=== PATIENT | male | born 1990 | race Caucasian/White ===

== ENCOUNTER 2019-10-05 15:07 | Emergency (ER) | payer MEDICAID, SELFPAY ==
[2019-10-05 15:09] VITALS: BP 153/89; PULSE 105; RESP 16; TEMP 36.8; O2SAT 96; BMI 44.1
--- NOTE | 2019-10-05 15:18 | EKG12_ITS ---
Test Reason : TRAUMA Blood Pressure : / mmHG Vent. Rate : 104 BPM Atrial Rate : 104 BPM P-R Int : 148 ms QRS Dur : 088 ms QT Int : 332 ms P-R-T Axes : 004 042 009 degrees QTc Int : 436 ms Sinus tachycardia Otherwise normal ECG Confirmed by CARRIE DIAZ ([id number]), desk editor DEJON BRENNER ([id number]) on 10/08/2019 2:34:55 PM Referred By: ESTELLA/ Confirmed By:CARRIE DIAZ
--- NOTE | 2019-10-05 15:29 | CT_ITS ---
STUDY: CT ABDOMEN AND PELVIS WITH CONTRAST REASON FOR EXAM: Male, 28 years old. Trauma RADIATION DOSAGE (If Supplied By Facility): CTDIvol = ( 24.53 ) mGy, DLP = ( 2356.62 ) mGycm TECHNIQUE: Transaxial images were obtained from the dome of the diaphragm to the symphysis pubis without oral contrast. 100 ml of Isovue-370 contrast was administered. Sagittal and coronal images were reconstructed. Individualized dose optimization techniques were used for this CT. COMPARISON: None. FINDINGS: Please see the report for the CT of the chest which is dictated separately. There are no calcified gallstones present. The liver is low in density, consistent with fatty infiltration. The spleen is normal in size. The pancreas is within normal limits. The adrenal glands are within normal limits. There are no renal or ureteral stones. There is no hydronephrosis. There are cysts noted in the kidneys. Normal visualized stomach. There is no bowel obstruction or inflammation. The appendix is visualized and appears normal. The aorta is normal in caliber. There is no abdominal or pelvic free air, free fluid, fluid collection or lymphadenopathy. The visualized abdominal and pelvic osseous structures are intact. CT/Abdomen/Pelvis W IV Cont ONLY IMPRESSION: No acute abdominal or pelvic pathology. Fatty liver. Electronically Signed: Hua Villavicencio, at 17:10 EDT Tel , Service support ,
--- NOTE | 2019-10-05 15:29 | CT_ITS ---
STUDY: CT CHEST WITH CONTRAST REASON FOR EXAM: Male, 28 years old. RADIATION DOSAGE (If Supplied By Facility): CTDIvol = ( 24.53 ) mGy, DLP = ( 2356.62 ) mGycm TECHNIQUE: Transaxial imaging was performed following intravenous administration of ml of 100mL Isovue-370 contrast material. Coronal and sagittal reformatted images were created. Individualized dose optimization techniques were used for this CT. COMPARISON: None FINDINGS: There are no pulmonary infiltrates or pleural effusions. There is a calcified granuloma in the left lung base. There is no pneumothorax. The heart and pericardium are within normal limits. There is residual thymic tissue noted in the anterior mediastinum. There is no thoracic lymphadenopathy. There is no evidence of thoracic aortic aneurysm. The visualized thoracic osseous structures are intact. CT/Chest WITH Contrast IMPRESSION: Unremarkable contrast-enhanced CT of the chest. Electronically Signed: Hua Villavicencio, at 17:07 EDT Tel , Service support ,
--- NOTE | 2019-10-05 15:31 | ED.VISSUMM ---
- ER Visit Summary Date of Service: 10/05/19 Chief Complaint: Chest wall pain History of Present Illness: The patient is a 28 M presenting with chest wall pain and abdominal pain. Patient was working under a car and the megan broke. The car came down on his chest. He does not believe the full weight of the car was on his chest. He did not hit his head or lose consciousness. He was able to get out from under the car. He complains of lower chest and upper abdominal pain. Denies other complaints. Physical Examination: Vitals are stable. Patient is afebrile. Alert no acute distress. HEENT exam is unremarkable. Neck is nontender Lungs are clear and equal bilaterally. Lower chest wall tenderness with no crepitus Heart is regular and tachycardic Abdomen is soft right upper quadrant tenderness with no guarding or rebound Extremities are unremarkable. Skin is warm and dry. No focal neurologic deficit. Remainder of exam is unremarkable. Emergency Department Course and Treatment: EKG is sinus tachycardia rate of 104. Patient was given Zofran IV, he declined pain medication. CT chest shows unremarkable contrast-enhanced CT of the chest. CT abdomen/pelvis shows no acute abdominal or pelvic pathology. On reevaluation, patient is resting comfortably. He is given prescription for short course of [place]. Advised to follow-up with his primary care physician. Advised return to ED for worsening complaints. Disposition: Discharge home Impression: Chest wall, abdominal wall contusion This note was generated with [employer] dictation software. It may contain incorrect words, spelling, and punctuation that were not noted in review of the chart prior to signing ED Disposition - Plan for ED Patient: Instructions: ED CHEST CONTUSION Prescriptions: Hydrocodone Bitart/Apap 5-325 [[place] 5MG-325MG] 1 tab PO Q6H PRN PRN 3 Days #10 tab PRN Reason: Pain Prescription Printed Referrals: [facility] Doctor,Out of [NON-STAFF] -
[2019-10-05 15:45] VITALS: BP 112/66; PULSE 100; RESP 16; O2SAT 96
[2019-10-05 16:03] LABS: Absolute Lymphocyte Count 3.07 X10^3/uL (0.83-4.51); Absolute Neutrophil Count 7.1 X10^3/uL (2.0-7.7); Basophil# 0.04 X10^3/uL; Basophil% 0.3 % (0-1); Eosinophil# 0.25 X10^3/uL; Eosinophils% 2.2 % (0-5); Hematocrit 49.2 % (40-54); Hemoglobin 16.7 g/dL (13.0-16.5); Lymphocyte # 3.07 X10^3/ul (4.0); Lymphocyte % 26.5 % (19-41); Mean Corp Hgb Conc 33.9 g/dL (32-36); Mean Corpuscular Hgb 28.6 pg (27.0-32.0); Mean Corpuscular Volume 84.4 fL (80-94); Mean Platelet Vol. 10.5 fl (6.2-12.0); Monocyte# 1.06 X10^3/uL; Monocyte% 9.2 % (0-10); NRBC Flagged by Analyzer 0 % (0-5); Neutrophil # 7.08 X10^3/uL (2.7-7.7); Neutrophil % 61.2 % (47-70); Platelet Count 249 K/mm3 (150-450); RBC Distribution Width SD 39.4 fl (35.1-43.9); Red Blood Count 5.83 M/mm3 (4.6-6.2); White Blood Count 11.6 K/mm3 (4.4-11.0)
[2019-10-05 16:21] LABS: Anion Gap 6 (5-15); BUN 13 mg/dL (7-18); BUN/Creat Ratio 13.3 RATIO (10-20); Calcium,Total 9.4 mg/dL (8.5-10.1); Chloride 107 mmol/L (98-107); Creatinine, Serum 0.98 mg/dL (0.70-1.30); EST Glomerular Filtration Rate 96 mL/min (>60); Est Glom Filt Rate - Afr Amer 116 mL/min (>60); Estimated Creatinine Clearance 125.69 ml/min; Glucose 129 mg/dL (74-106); Potassium 3.9 mmol/L (3.5-5.1); Sodium Level 139 mmol/L (136-145)
--- NOTE | 2019-10-05 17:35 | ED.DEP ---
ED Disposition - Plan for ED Patient: Instructions: ED CHEST CONTUSION Prescriptions: Hydrocodone Bitart/Apap 5-325 [[place] 5MG-325MG] 1 tablet PO Q6H PRN PRN 3 Days #10 tablet PRN Reason: Pain Referrals: [facility],Out of [NON-STAFF] -
[2019-10-05 17:41] VITALS: BP 115/72; PULSE 88; PULSE 91; RESP 20; O2SAT 95
== END 2019-10-05 17:47 | disposition home or self-care (01) ==
LOC: ED 16:01
PROVIDERS: Emergency Provider Emergency Medicine; PCP Internal Medicine
DX: S30.1XXA Contusion of abdominal wall, initial encounter (principal); S20.219A Contusion of unspecified front wall of thorax, initial encounter; W31.89XA Contact with other specified machinery, initial encounter; Y93.89 Activity, other specified; Y92.9 Unspecified place or not applicable; Y99.9 Unspecified external cause status
CPT/HCPCS: 71260; 74177; 80048; 84484; 85025; 93005; 96374; 96375; 99283; Q9967; A4216

== ENCOUNTER 2020-05-31 20:54 | Emergency (ER) | payer MEDICAID, SELFPAY ==
--- NOTE | 2020-05-31 20:38 | RAD_ITS ---
STUDY: X-RAY - LEFT HAND REASON FOR EXAM: Male, 29 years old. FINGER AMPUTATION ACCIDENT. CUT FINGERTIP OFF OF LEFT RING FINGER TECHNIQUE: 3 view(s) of the hand. COMPARISON: None. FINDINGS: The distal phalanx of the fourth digit has been amputated. A tiny fragment from the base of the distal phalanx remains. The overlying remaining soft tissue is lacerated. No fracture is seen in the remaining bony structures. Diffuse soft tissue swelling is present throughout the hand. Normal radiocarpal articulation. Normal distal radioulnar joint. Normal visualized carpal bones. Normal carpal articulations Normal carpometacarpal articulation of the thumb. Normal second through fifth carpometacarpal joints. Normal metacarpi. Normal metacarpophalangeal joint of the thumb. Normal interphalangeal joint of the thumb. Normal proximal and distal phalanges of the thumb. Normal metacarpophalangeal joints of the second through fifth fingers. Normal proximal and distal interphalangeal joints of the second through fifth fingers. Normal phalanges of the second through fifth fingers. RAD/Hand Min 3 Views IMPRESSION: 1. The distal phalanx of the fourth digit has been amputated. A tiny fragment from the base of the distal phalanx remains. The overlying remaining soft tissue is lacerated. No fracture is seen in the remaining bony structures. Diffuse soft tissue swelling is present throughout the hand. Electronically Signed: Derrick Anand MD at 21:57 EST , Service support ,
[2020-05-31 20:55] VITALS: BP 109/91; PULSE 85; RESP 18; TEMP 36.4; O2SAT 97; BMI 40.2
--- NOTE | 2020-05-31 21:14 | ED.DCSUM_ITS ---
History of Present Illness Chief Complaint: Upper Extremity Injury Narrative: Patient is a 29-year-old male who presents with a fingertip amputation. He was working on a car. He suffered an amputation of the left distal ring finger due to the car fan. He also has a superficial injury to the fifth finger and third finger. He otherwise denies any recent illness. He last received a tetanus immunization 3 to 4 years ago. He reports history of schizophrenia bipolar and hypertension but takes no daily medications. He is not diabetic. Past Medical History - Allergies and Home Meds Allergies/Adverse Reactions: Allergies methylphenidate [From Ritalin] Adverse Reaction (Verified 05/31/20 20:55) NEEDS FOLLOW-UP Primary Care Physician: NOT,DEFINED [NON-STAFF] - Past Medical History: - - Schizophrenia, bipolar, hypertension Smoking Status: Current every day smoker Review of Systems All systems negative except as indicated General: Denies: Fever Eyes: Denies: Visual changes - bilaterally Cardiovascular: Denies: Chest pain Respiratory: Denies: Dyspnea Gastrointestinal: Denies: Nausea, Vomiting Musculoskeletal: Reports: Extremity Pain Skin: Denies: Rash Neurological: Denies: Headache Hematologic: Denies: Easy bruising Allergy: Denies: Uticaria Physical Exam Vital Signs/Narrative: Vital Signs Temp Pulse Resp BP Pulse Ox 05/31/20 20:55 97.5 F L 85 18 109/91 H 97 Inital Vital Signs reviewed: Yes General: Well nourished Head: Normocephalic Eyes: EOMI ENT: Moist mucous membranes Neck: Supple Cardiovascular: Regular rate Respiratory: No distress Extremities: - - There is an amputation of the left fourth finger at the DIP he also has a superficial skin avulsion of the finger pad of the fifth digit and a tiny superficial injury at the eponychial fold of the third finger bleeding is controlled Skin: Normal color Neurological: Alert Psychological: Normal affect Diagnostic/Tx/Re-eval Impressions Hand X-Ray 05/31/20 20:38 IMPRESSION: 1. The distal phalanx of the fourth digit has been amputated. A tiny fragment from the base of the distal phalanx remains. The overlying remaining soft tissue is lacerated. No fracture is seen in the remaining bony structures. Diffuse soft tissue swelling is present throughout the hand. Electronically Signed: Derrick Anand MD at 21:57 EST , Service support , 05/31/20 20:38 Hand Min 3 Views [RAD] Stat - Medical Decision Making Patient was given IV morphine and Zofran. He was given IV Ancef. I spoke to Dr. Barrientos who is on-call for orthopedics. He notes that it is very unlikely this patient will be a candidate for replant. He recommended closure of the soft tissue to make sure there is no exposed bone and follow-up in the office. I discussed with the patient. He was still concerned and wanted me to speak to hand surgery regarding possible replant. I did speak to orthopedic hand surgery at [facility] who agrees this patient would not be a candidate for replant. I did perform a digital block with a total of 6 cc of 1% lidocaine without epinephrine. Good anesthesia was achieved. The hand was cleansed with GoJo as he had a large amount of grease. He was then further cleansed with saline. The articular surface of the middle phalanx was visualized. There is a small flap of skin which is devitalized and this was debrided to give a bisque cleaner wound edge. 3 simple interrupted 4?0 nonabsorbable sutures were used to close skin and soft tissue over exposed bone and good coverage was obtained. Patient was placed in a Xeroform gauze dressing and the finger with the amputation was spli nted. Patient was placed on oral antibiotics and referred to orthopedics for follow-up. He was given a prescription for Percocet for pain control. ED Disposition - Plan for ED Patient: Disposition: Home or Assisted Living Diagnosis: Fingertip amputation Prescriptions: Cephalexin [Keflex] 500 mg PO Q6 #40 cap Prescription Printed Oxycodone HCl/Acetaminophen [Percocet 5/325] 1 tab PO Q6H PRN PRN 3 Days #12 tab PRN Reason: Pain Prescription Printed Referrals: NOT,DEFINED [NON-STAFF] - Stanley Barrientos MD [STAFF PHYSICIAN] - Additional Instructions: You were seen today for a partial amputation of your left ring finger. The wound was cleansed sutured and a dressing applied. Take all antibiotics and pain medications as prescribed. Keep the wound clean and dry. Follow-up with orthopedic surgery as soon as possible. Return for any new or worsening symptoms including but not limited to increased pain fever redness.
[2020-05-31] MEDS: Ondansetron 4 MG/2 ML Vial IV (21:23)
[2020-05-31] MEDS: Morphine 4 MG/ML Syringe IV ×3 (21:23→23:52)
[2020-05-31] MEDS: Cefazolin 1 GM/50 ML BAG IV (21:56)
[2020-05-31 23:57] VITALS: BP 110/80; PULSE 87; RESP 16; O2SAT 97
== END 2020-06-01 00:04 | disposition home or self-care (01) ==
PROVIDERS: Emergency Provider Emergency Medicine
DX: S68.115A Complete traumatic metacarpophalangeal amputation of left ring finger, initial encounter (principal); W26.8XXA Contact with other sharp object(s), not elsewhere classified, initial encounter; S60.945A Unspecified superficial injury of left ring finger, initial encounter; S60.943A Unspecified superficial injury of left middle finger, initial encounter; Y93.89 Activity, other specified; Y92.89 Other specified places as the place of occurrence of the external cause; Y99.9 Unspecified external cause status; F20.9 Schizophrenia, unspecified; F31.9 Bipolar disorder, unspecified; F17.200 Nicotine dependence, unspecified, uncomplicated; I10 Essential (primary) hypertension
CPT/HCPCS: 97597; 73130; 99283; J7030; A4216; J2405; J3490